=== PATIENT | male | born 1985 | race American Indian/Alaskan Native ===

== ENCOUNTER 2016-06-02 20:08 | Emergency (ER) | payer SELFPAY ==
[2016-06-02] MEDS ORDERED: NACL 0.9% 1000 ML 1,000 ML IV ONE (21:06)
[2016-06-02 21:43] LABS: Basophils % (Auto) 0.6 % (0.0-1.8); Eosinophils % (Auto) 0.2 % (0.0-4.3); Hematocrit 48.7 % (35.5-45.6); Hemoglobin 16.3 gm/dl (11.8-15.2); Mean Corpuscular HGB Conc 34 % (32-34); Mean Corpuscular Hemoglobin 32 pg (28-32); Mean Corpuscular Volume 94 fl (84-94); Platelet Count 132 K/mm3 (140-440); Red Blood Count 5.18 M/mm3 (3.65-5.03); Red Cell Distribution Width 13.5 % (13.2-15.2); White Blood Count 6.4 K/mm3 (4.5-11.0)
[2016-06-02 21:47] LABS: INR 1.12 (0.87-1.13)
[2016-06-02 21:49] LABS: Partial Thromboplastin Time 30.3 Sec. (24.2-36.6)
[2016-06-02 22:04] LABS: Alanine Aminotransferase 10 units/L (7-56); Albumin 4.9 g/dL (3.9-5); Albumin/Globulin Ratio 1.8 %; Alkaline Phosphatase 62 units/L (35-129); BUN/Creatinine Ratio 6.66; Bilirubin,Total 0.5 mg/dL (0.1-1.2); Blood Urea Nitrogen 6 mg/dL (9-20); Calcium 9.8 mg/dL (8.4-10.2); Carbon Dioxide 28 mmol/L (22-30); Chloride 101.5 mmol/L (98-107); Glucose 95 mg/dL (75-100); Lipase 33 units/L (13-60); Sodium 144 mmol/L (137-145); Total Protein 7.7 g/dL (6.3-8.2)
[2016-06-02 22:05] LABS: Anion Gap 19 mmol/L
[2016-06-03 08:16] VITALS: BP 138/71
--- NOTE | 2016-06-03 10:08 | Emergency Department Report ---
Chief Complaint: GI Bleed Stated Complaint: ABDOMINAL PAIN Time Seen by Provider: 06/03/16 09:51 - HPI History of Present Illness: Patient here for rectal pain and bleeding for 3 years. He says he thinks he has ulcer. He said the bleeding is bright red. Denies passing any clots. Pain is 4 out of 10 to his rectum. Patient said the pain feels like it's burning. Denies any abdominal pain. Denies any blood in urine. Denies any chest pain or shortness of breath. - ROS Review of Systems: All systems are negative unless stated in HPI above. - Exam Vital Signs: Vital Signs 06/02/16 06/03/16 06/03/16 21:03 05:23 08:14 Temperature 98.2 F 97.9 F 98.5 F Pulse Rate 94 H 68 82 Respiratory 18 18 16 Rate Blood Pressure 117/80 118/80 138/71 O2 Sat by Pulse 100 100 96 Oximetry Physical Exam: General: This is a 31-year-old male well-nourished well-developed in no acute distress. Abdomen: Nontender to palpate in all quadrants. No guarding or rebound tenderness. Normal bowel sounds in all quadrants MSE screening note: Focused history and physical exam performed. Due to findings the following was ordered:see [facility] ED Medical Decision Making - Lab Data Result diagrams: 06/02/16 21:18 06/02/16 21:18 - Medical Decision Making Medical decision making: Patient seen by provider in triage area. Appropriate protocol activated and patient to main ED to be seen by physician. ED Disposition for MSE Condition: Stable Forms: Accompanied Note
--- NOTE | 2016-06-03 21:03 | ED Elopement Review ---
ED Pt Elopement review - Results review Lab results: Laboratory Tests 06/02/16 06/02/16 06/02/16 21:18 21:18 21:18 WBC 6.4 RBC 5.18 H Hgb 16.3 H Hct 48.7 H MCV 94 MCH 32 MCHC 34 RDW 13.5 Plt Count 132 L Lymph % (Auto) 22.6 Garvin % (Auto) 7.9 H Eos % (Auto) 0.2 Baso % (Auto) 0.6 Lymph # 1.4 Garvin # 0.5 Eos # 0.0 Baso # 0.0 Seg Neutrophils % 68.7 Seg Neutrophils # 4.4 PT 14.3 INR 1.12 APTT 30.3 Sodium 144 Potassium 4.0 Chloride 101.5 Carbon Dioxide 28 Anion Gap 19 BUN 6 L Creatinine 0.9 Estimated GFR > 60 BUN/Creatinine Ratio 6.66 Glucose 95 Calcium 9.8 Total Bilirubin 0.5 AST 19 ALT 10 Alkaline Phosphatase 62 Total Protein 7.7 Albumin 4.9 Albumin/Globulin Ratio 1.8 Lipase 33 Blood Type Antibody Screen 06/02/16 21:25 WBC RBC Hgb Hct MCV MCH MCHC RDW Plt Count Lymph % (Auto) Garvin % (Auto) Eos % (Auto) Baso % (Auto) Lymph # Garvin # Eos # Baso # Seg Neutrophils % Seg Neutrophils # PT INR APTT Sodium Potassium Chloride Carbon Dioxide Anion Gap BUN Creatinine Estimated GFR BUN/Creatinine Ratio Glucose Calcium Total Bilirubin AST ALT Alkaline Phosphatase Total Protein Albumin Albumin/Globulin Ratio Lipase Blood Type A POSITIVE Antibody Screen Negative - Call Back decision Pt Call Back Decision: No action required
== END 2016-06-03 19:04 | disposition left against medical advice (07) ==
LOC: ED 20:08
DX: K62.89 Other specified diseases of anus and rectum (principal); Z53.21 Procedure and treatment not carried out due to patient leaving prior to being seen by health care provider
CPT/HCPCS: 36415; 80053; 83690; 85025; 85610; 85730; 86850; 86900; 86901; 93005; 93010